=== PATIENT | female | born 1960 | race Caucasian/White ===

== ENCOUNTER 2016-10-24 14:58 | Observation (INO) ==
--- NOTE | 2016-10-24 15:06 | Emergency Department Note ---
Disposition Clinical Impression: Acute exacerbation of chronic obstructive airways disease Disposition: Admitted As Inpatient Condition: Good Referrals: NO,PCP [Non-Partnered Physician] - Forms: ED Satisfaction Letter SOB HPI - General Chief Complaint: ED Shortness of Breath/Dyspnea Stated Complaint: Shortness of breath Time Seen by Provider: 10/24/16 15:05 Source: patient, EMS Mode of arrival: EMS Limitations: no limitations Nursing Notes Reviewed: Yes Vital Signs Reviewed: Yes - History of Present Illness Patient relates that she has had increased shortness of breath for 2 or 3 weeks. With this her "chest is hurtin' with breathing". She relates the cough is productive only a small amount of phlegm. She states she has felt this way in the past with pneumonia. She has had fever or chills. Denies nausea, vomiting, diaphoresis or abdominal pains. She has had occasional abdominal cramp. She reports some body aches. She has occasionally had some swelling without any swelling or pain to her calves or thighs. She states that she has been exposed to her daughter and grandkids who have had upper respiratory symptoms. She has been doing her nebulize treatments and inhalers regularly. She has been continuing on her usual 4 L of home O2. Pt Subjective Complaint: shortness of breath Onset (ago): week(s) (3) Context: recent illness Severity: moderate Consistency/Duration: gradually worsening Improves with: oxygen, rest, bronchodilators Worsens with: exertion, coughing Known history of: COPD Associated symptoms: Reports: chest pain, pain with inspiration, cough, wheezing , sputum production. Denies: fever, orthopnea, lower extremity pain, polyuria, polydipsia, parasthesias, palpitations, hemoptysis, diaphoresis, nausea/vomiting , syncope, abdominal pain, rash Treatment prior to arrival: oxygen, bronchodilator Cough present: Yes Cough Description: Voluntary, Productive, Hacking Cough Frequency: Intermittent Sputum production: Yes Sputum Amount: Scant - Related Data Home oxygen amount: 4 liters Home Medications Medication Instructions Recorded Confirmed Atorvastatin Calcium [Lipitor] 80 mg PO DAILY 06/03/15 09/29/16 Budesonide/Formoterol 160/4.5 2 puff IH BIDR 06/03/15 09/29/16 [Symbicort] Ticagrelor [Brilinta] 90 mg PO BID 06/03/15 09/29/16 Rivaroxaban [Xarelto] 15 mg PO QDPC 10/04/15 09/29/16 Roflumilast [Daliresp] 500 mcg PO DAILY 10/04/15 09/29/16 Albuterol Sulfate [Ventolin Hfa] 18 gm IH BID 09/29/16 09/29/16 Previous Rx's Medication Instructions Recorded PredniSONE 20 mg PO DAILY #18 tablet 12/06/15 Allergies Allergy/AdvReac Type Severity Reaction Status Date / Time codeine Allergy unknown Verified 09/29/16 14:49 All systems ED: reviewed and negative except as stated. Past Medical History - Past Medical History Attestation: Yes The following information was validated with the patient. Source: patient, old records reviewed, nursing notes reviewed Medical history: Reports: COPD, coronary artery disease, hyperlipidemia, hypertension, myocardial infarction Surgical history: Reports: angioplasty/stent Psychiatric history: Reports: anxiety [employer] history: Reports: bilateral tubal ligation - Social History Smoking Status: Current every day smoker Smokeless Tobacco Status: No Alcohol use: Reports: none, rarely Drug use: Reports: none Physical Exam - General Limitations: no limitations General appearance: alert, in distress - Head Head exam: atraumatic, normocephalic, normal inspection - Eye Eye exam: Present: normal appearance, PERRL, EOMI - ENT ENT exam: normal exam, normal oropharynx, mucous membranes moist - Neck Neck exam: Present: normal inspection, full ROM, trachea midline - Chest Chest inspection: Present: normal inspection, symmetric chest wall rise. Absent : tenderness - Respiratory Respiratory exam: Present: respiratory distress, prolonged expiratory phase. Absent: wheezes - Cardiovascular Cardiovascular exam: Present: regular rate, normal rhythm, tachycardia, normal heart sounds - Abdominal Exam Abdominal exam: Present: soft, Non-Tender, normal bowel sounds. Absent: tenderness, distention, guarding, rebound, rigidity - Extremities Exam Extremities exam: Present: normal inspection, full ROM, normal capillary refill , pedal edema (1+). Absent: tenderness, calf tenderness - Expanded Lower Extremity Exam Neurovascular/Tendon exam: Present: normal capillary refill. Absent: motor deficit, sensory deficit, tendon deficit Gait: not tested/not observed - Back Exam Back exam: Present: normal inspection, full ROM. Absent: tenderness, CVA tenderness (R), CVA tenderness (L) - Neurological Exam Neurological exam: Present: alert, oriented X3 - Psychiatric Psychiatric exam: Present: normal affect, normal mood - Skin Skin exam: Present: warm, dry, intact, normal color. Absent: cyanosis, diaphoresis, pallor Course Course Narrative: 1600: All lab, EKG and imaging results are discussed with the patient. She states she still has persistent dyspnea and simply cannot breathe when she gets up to walk around the house. She does not feel comfortable in trying to do any outpatient treatment at this time. I have contacted to Dr. Garcia to see if he has agreeable to continued inpatient management on an observation status. Vital Signs Temperature 98.2 F 10/24/16 15:02 Pulse Rate 109 10/24/16 15:02 Respiratory Rate 28 10/24/16 15:02 Blood Pressure 124/69 10/24/16 15:02 O2 Sat by Pulse Oximetry 98 10/24/16 15:02 Temperature 98.2 F 10/24/16 15:02 Pulse Rate 109 10/24/16 15:02 Respiratory Rate 22 10/24/16 15:30 Blood Pressure 124/69 10/24/16 15:02 O2 Sat by Pulse Oximetry 96 10/24/16 15:30 Oxygen Delivery Oxygen Delivery Room Air Shortness of Breath/Dyspnea - Differential Diagnosis Likely: acute exacerbation of chronic obstructive airways disease, congestive heart failure, pneumonia, asthma with exacerbation - Medical Records Medical records reviewed: Yes I reviewed the patient's medical records. - Lab Data Lab results reviewed: Yes I reviewed the patient's lab results. Lab results narrative: The patient's hemoglobin has been in a similar range over the last month. Result diagrams: 10/24/16 15:33 10/24/16 15:33 Lab Results 10/24/16 10/24/16 10/24/16 Range/Units 15:33 15:33 15:33 WBC 8.1 (4.3-11.1) K/mcL RBC 3.35 L (3.82-4.97) M/mcL Hgb 8.5 L (11.5-15.4) g/dL Hct 29.3 L (35.3-44.9) % MCV 87.5 (83.0-100.0) fL MCH 25.4 L (28.0-33.3) pg MCHC 29.0 L (31.6-35.5) g/dL RDW 17.3 H (11.5-14.5) % Plt Count 233 (140-400) K/mcL MPV 11.7 (9.4-12.4) fL Immature Gran % 0.2 (0-4) % Seg Neutrophils % 83.8 % Lymphocytes % 9.1 % Monocytes % 6.6 % Eosinophils % 0.2 % Basophils % 0.1 % Neutrophils # 6.8 (1.6-8.9) K/mcL Lymphocytes # 0.7 (0.6-4.6) K/mcL Monocytes # 0.5 (0.0-1.3) K/mcL Eosinophils # 0.0 (0.0-0.6) K/mcL Basophils # 0.0 (0.0-0.2) K/mcL VBG Lactic Acid (0.5-2.2) mmol/L Sodium 141 (136-145) mEq/L Potassium 4.3 (3.5-4.5) mEq/L Chloride 96 L (98-109) mEq/L Carbon Dioxide 32 H (19-29) mEq/L BUN 7 (7-20) mg/dL Creatinine 0.54 L (0.57-1.11) mg/dL Est GFR ( Amer) > 60 (> 60) Est GFR (Non-Af Amer) > 60 (> 60) BUN/Creatinine Ratio 13 (6-26) Glucose 92 (70-99) mg/dL Calculated Osmolality 290 (280-300) Calcium 9.1 (8.6-10.8) mg/dL Troponin I 0.00 (0-0.03) ng/mL 10/24/16 Range/Units 15:33 WBC (4.3-11.1) K/mcL RBC (3.82-4.97) M/mcL Hgb (11.5-15.4) g/dL Hct (35.3-44.9) % MCV (83.0-100.0) fL MCH (28.0-33.3) pg MCHC (31.6-35.5) g/dL RDW (11.5-14.5) % Plt Count (140-400) K/mcL MPV (9.4-12.4) fL Immature Gran % (0-4) % Seg Neutrophils % % Lymphocytes % % Monocytes % % Eosinophils % % Basophils % % Neutrophils # (1.6-8.9) K/mcL Lymphocytes # (0.6-4.6) K/mcL Monocytes # (0.0-1.3) K/mcL Eosinophils # (0.0-0.6) K/mcL Basophils # (0.0-0.2) K/mcL VBG Lactic Acid 0.9 (0.5-2.2) mmol/L Sodium (136-145) mEq/L Potassium (3.5-4.5) mEq/L Chloride (98-109) mEq/L Carbon Dioxide (19-29) mEq/L BUN (7-20) mg/dL Creatinine (0.57-1.11) mg/dL Est GFR ( Amer) (> 60) Est GFR (Non-Af Amer) (> 60) BUN/Creatinine Ratio (6-26) Glucose (70-99) mg/dL Calculated Osmolality (280-300) Calcium (8.6-10.8) mg/dL Troponin I (0-0.03) ng/mL - Radiology Data Radiology results reviewed: Yes I reviewed the patient's radiology results. Single view chest x-ray is performed. This does not demonstrate evidence for infiltrate, effusion, pneumothorax, foreign body or heart failure. The cardiac silhouette is normal. The lungs are hyperexpanded consistent with COPD. I do not see abnormality to the osseous structures of the chest. This is on my interpretation. Impressions Chest X-Ray 10/24/16 15:13 IMPRESSION: COPD, without acute cardiopulmonary process identified. D/ / Yasir Porter MD / Yasir Porter MD Interpreting Provider: Yasir Porter MD - EKG Data EKG attestation: Yes I reviewed and interpreted this EKG. EKG shows normal: Reports: sinus rhythm, axis, intervals, QRS complexes, ST-T waves Rate: Reports: normal (97) Interpretation: Reports: no acute changes
[2016-10-24] MEDS ORDERED: Ipratropium/Albuterol Neb 3 ML IH ONE (15:12)
[2016-10-24] MEDS ORDERED: Levofloxacin 500 MG/100 ML 500 MG/100 ML BAG IVPB ONE (15:12)
[2016-10-24] MEDS ORDERED: 0.9 % Sodium Chloride 1,000 ML IVC SCH ×2 (15:15→17:08)
[2016-10-24 15:41] LABS: Basophils % 0.1 %; Eosinophils % 0.2 %; Hematocrit 29.3 % (35.3-44.9); Hemoglobin 8.5 g/dL (11.5-15.4); Immature Granulocytes % 0.2 % (0-4); Lymphocytes # 0.7 K/mcL (0.6-4.6); Lymphocytes % 9.1 %; Mean Corpuscular Hemoglobin 25.4 pg (28.0-33.3); Mean Corpuscular Volume 87.5 fL (83.0-100.0); Mean Platelet Volume 11.7 fL (9.4-12.4); Monocytes # 0.5 K/mcL (0.0-1.3); Monocytes % 6.6 %; Neutrophils # 6.8 K/mcL (1.6-8.9); Platelet Count 233 K/mcL (140-400); Red Blood Count 3.35 M/mcL (3.82-4.97); Red Cell Distribution Width 17.3 % (11.5-14.5); Segmented Neutrophils % 83.8 %
[2016-10-24 15:56] LABS: BUN/Creatinine Ratio 13 (6-26); Blood Urea Nitrogen 7 mg/dL (7-20); Calcium 9.1 mg/dL (8.6-10.8); Carbon Dioxide 32 mEq/L (19-29); Chloride 96 mEq/L (98-109); Glucose 92 mg/dL (70-99); Osmolality,Calculated 290 (280-300); Potassium 4.3 mEq/L (3.5-4.5); Sodium 141 mEq/L (136-145); eGFR For African Americans > 60 (> 60); eGFR For Non-African Americans > 60 (> 60)
[2016-10-24] MEDS ORDERED: Ondansetron 4 MG/2 ML VIAL IVP PRN (17:08)
[2016-10-24] MEDS ORDERED: Ibuprofen 400 MG TABLET PO PRN (17:08)
[2016-10-24] MEDS ORDERED: Acetaminophen 325 MG TABLET PO PRN (17:08)
[2016-10-24] MEDS ORDERED: Naloxone 0.4 MG/ML INJ IVP PRN (17:08)
[2016-10-24] MEDS ORDERED: Albuterol 2.5 MG/3 ML NEBULIZER IH PRN (17:08)
[2016-10-24] MEDS ORDERED: MOM Conc 10 ML UD.LIQ PO PRN (17:08)
--- NOTE | 2016-10-24 18:20 | Internal Med History&Physical ---
Date of Encounter: 10/24/16 Time of Encounter: 17:55 Assessment and Plan (1) Acute exacerbation of chronic obstructive airways disease Current visit: Yes Status: Acute She has been ordered Levaquin and prednisone through emergency room. Continue pulmonary regiment including Symbicort (2) Anemia Current visit: No Status: Acute We will check anemia testing in a.m. She will likely need iron dextran infusion. Qualifiers: Anemia type: unspecified type Qualified Code(s): D64.9 - Anemia, unspecified (3) Lung nodule Current visit: No Status: Acute Recommend repeat CT scan in August 2017 to follow up right lower lobe nodule Internal Medicine - H&P: HPI Chief complaint: Dyspnea Admitted From: Home Plans for Post Hospital Care: Home History of present illness: Ms. Lopez is a 56 year old female who came to emergency him stating she had progressive dyspnea onset approximately 2 weeks previously. She stated she had chest pain with taking a deep breath. She had a minimally productive cough. She was evaluated in emergency room and felt to have exacerbation of COPD. She was admitted to [facility] floor for ongoing care needs. She was hospitalized at [facility] approximately 2 months ago with similar complaints. She as smoked since age 14 up to 3 packs per day. She thinks she had PFTs approximately July 2015 at [facility] and was told she had COPD. She has worn oxygen at home 27/03 since 2013. She has not been tested for sleep apnea. She states she last saw her product tester June 2016. Past Med Surg Social Fam HX - Past Medical History Medical history: COPD, coronary artery disease, hyperlipidemia, hypertension, myocardial infarction Psychiatric history: anxiety - Past Surgical History Surgical History: angioplasty/stent - Social History Smoking Status: Current every day smoker Smokeless Tobacco Status: No Alcohol use: none, rarely Drug use: none Internal Medicine - H&P: Meds Atorvastatin Calcium [Lipitor] 80 mg PO DAILY 06/03/15 [History] Budesonide/Formoterol 160/4.5 [Symbicort] 2 puff IH BIDR 06/03/15 [History] Ticagrelor [Brilinta] 90 mg PO BID 06/03/15 [History] Rivaroxaban [Xarelto] 15 mg PO QDPC 10/04/15 [History] Roflumilast [Daliresp] 500 mcg PO DAILY 10/04/15 [History] PredniSONE 20 mg PO DAILY #18 tablet 12/06/15 [Rx] Albuterol Sulfate [Ventolin Hfa] 18 gm IH BID 09/29/16 [History] Allergies codeine Allergy (Verified 09/29/16 14:49) unknown All Systems PM: A 10-system review of systems was performed and is negative for pertinent findings except as documented above in the HPI. Review of systems: Review of systems from her August 2016 [facility] hospitalization were reviewed and revised as below. Gen.: Her weight has decreased from 48.8 kg at time of discharge August 2016 to admission weight of 40.823 kg at present Cardiovascular: She claims she has had 5 myocardial infarctions. She had a heart catheterization October 2013 with a stent placed in the RCA. She denies DVT or pulmonary embolus. She had an echocardiogram done August 2014 with LVEF of 45%. There was moderate diastolic dysfunction and no significant valvular abnormalities. Respiratory: As per history of present illness GI: She denies disorders with her liver gallbladder or exocrine pancreas. She states she has had diarrhea occasionally with urination but states the stool is not very loose. : No history of hematuria dysuria or kidney stones Neurologic: No history of large distribution strokes or seizures. Endocrine: She has hyperlipidemia. She denies thyroid disease or diabetes. Hematology/oncology: She denies blood disorders cancers or anemia. She has a pulmonary nodule that was in the right lower lung on a September 2015 CT scan. A follow-up CT done in August 2016 showed no significant change with a recommendation for follow up CT in 12 months. Anemia testing done during her last hospitalization showed findings consistent with iron deficiency anemia. She was prescribed oral ferrous sulfate and vitamin C but states she has not taken them because of intolerance. Psychiatric: She has depression but no significant anxiety or other mental health issues Musk skeletal: She has arthritis but no known gout or osteoporosis - Constitutional Vitals: Temp Pulse Resp BP Pulse Ox 98.2 F 103 18 106/68 94 L 10/24/16 15:02 10/24/16 16:36 10/24/16 17:05 10/24/16 17:05 10/24/16 16:36 Exam: Gen.: She is a cachectic female lying in bed who appears in mild respiratory distress HEENT: Head is atraumatic and normocephalic. Eyes: EOMI. There is no scleral icterus. Mouth: Mucosa is moist. Neck: Supple and nontender. There is no thyromegaly or adenopathy noted. Heart: Regular without murmurs gallops or ectopics. Lungs: No wheezes or crackles are heard. Abdomen: Soft and nontender. No masses or guarding are noted. Extremities: There is no cyanosis or clubbing noted. There is trace to 1+ pitting edema in the left perimalleolar area. Dorsalis pedis and posttibial pulses are trace palpable bilaterally. Her feet are warm to touch. Neurologic: Mental status: She is talkative and a good historian. Cranial nerves: Smile is symmetric. Forehead wrinkles bilaterally. Tongue protrudes midline. EOMI. Motor: There is no pronator drift. Cerebellar: Finger to nose is intact bilaterally. Skin: Warm and dry Internal Med - H&P Results - Labs CBC & Chem 7: 10/24/16 15:33 10/24/16 15:33
[2016-10-24] MEDS: PredniSONE 20 MG TABLET PO SCH (21:09)
[2016-10-24] MEDS: 0.9 % Sodium Chloride 1,000 ML IVC SCH (21:11)
[2016-10-24] MEDS: Ipratropium/Albuterol Neb 3 ML IH SCH (22:23)
[2016-10-24] MEDS: Budesonide/Formoterol 160/4.5 MDI IH SCH (22:26)
[2016-10-25] MEDS: Ipratropium/Albuterol Neb 3 ML IH SCH ×4 (04:59→22:30)
[2016-10-25] MEDS: 0.9 % Sodium Chloride 1,000 ML IVC SCH (05:17)
[2016-10-25 06:08] LABS: Hematocrit 24.2 % (35.3-44.9); Hemoglobin 7.1 g/dL (11.5-15.4); Immature Granulocytes % 0.3 % (0-4); Lymphocytes # 0.3 K/mcL (0.6-4.6); Lymphocytes % 7.9 %; Mean Corpuscular HGB Conc 29.3 g/dL (31.6-35.5); Mean Corpuscular Hemoglobin 25.2 pg (28.0-33.3); Mean Corpuscular Volume 85.8 fL (83.0-100.0); Mean Platelet Volume 11.6 fL (9.4-12.4); Monocytes # 0.1 K/mcL (0.0-1.3); Monocytes % 2.6 %; Neutrophils # 3.5 K/mcL (1.6-8.9); Platelet Count 189 K/mcL (140-400); Red Blood Count 2.82 M/mcL (3.82-4.97); Red Cell Distribution Width 17.2 % (11.5-14.5); Segmented Neutrophils % 89.2 %
[2016-10-25] MEDS: PredniSONE 20 MG TABLET PO SCH ×2 (08:23→17:20)
[2016-10-25] MEDS ORDERED: Levofloxacin 500 MG/100 ML 500 MG/100 ML BAG IVPB SCH (09:00)
[2016-10-25 10:35] LABS: % Iron Saturation 2 % (15-50); Iron 8 mcg/dL (50-170); Transferrin 271 mg/dL (180-382)
[2016-10-25] MEDS: Budesonide/Formoterol 160/4.5 MDI IH SCH ×2 (10:46→22:30)
[2016-10-25 10:56] LABS: Ferritin 8 ng/ml (5-204)
[2016-10-25 11:09] LABS: Folate 10.9 ng/mL (7.0-31.4)
--- NOTE | 2016-10-25 11:27 | Internal Med Progress Note ---
Date of Encounter: 10/25/16 Time of Encounter: 11:15 - Assessment and plan (1) Acute exacerbation of chronic obstructive airways disease Current Visit: Yes Status: Acute Assessment and plan: October 25. Continue Levaquin. I will decrease prednisone to 10 mg twice a day (2) Anemia Current Visit: No Status: Acute Assessment and plan: October 25. Hemoglobin has decreased to 7.1. Anemia testing shows iron deficiency. I will give her iron dextran infusion. Recheck labs in a.m. Will do abdominal/pelvic CT to evaluate anemia and weight loss Qualifiers: Anemia type: unspecified type Qualified Code(s): D64.9 - Anemia, unspecified (3) Lung nodule Current Visit: No Status: Acute Assessment and plan: October 25. Recheck chest CT August 2017. - Subjective Interval history: October 25. She has no new complaints. She states her breathing has improved. - Constitutional Vitals: Temp Pulse Resp BP Pulse Ox 98.3 F 72 18 106/43 99 10/25/16 06:37 10/25/16 06:37 10/25/16 06:37 10/25/16 06:37 10/25/16 06:37 Exam: She is resting comfortably in bed and appears in no acute distress. Her affect is bright and cheerful. I reviewed her medications and lab results. Internal Medicine: Result - Labs CBC & Chem 7: 10/25/16 05:45 10/24/16 15:33 Labs: Short CBC 10/25/16 Range/Units 05:45 WBC 3.9 L D (4.3-11.1) K/mcL Hgb 7.1 L (11.5-15.4) g/dL Hct 24.2 L (35.3-44.9) % Plt Count 189 (140-400) K/mcL Neutrophils # 3.5 (1.6-8.9) K/mcL Consult Discharge Plan - Plan Referrals: Marcos Green MD [Primary Care Provider] - 1 week
[2016-10-25] MEDS ORDERED: IRON DEXTRAN COMPLEX IVPB ONE (14:00)
[2016-10-25] MEDS ORDERED: SODIUM CHLORIDE 0.9% IVPB ONE (14:00)
--- NOTE | 2016-10-25 17:56 | Electrocardiograph Report ---
[address] [address] Test Date: 2016-10-24 Pat Name: Lashanda Lopez Department: [id number] Room: [facility] Gender: F Interline Clerk: : 1960 Requested By: Lewis Lozano Order Number: [id number] Reading MD: Skyla See Measurements Intervals [place] Rate: 97 P: 74 CA: 120 QRS: 82 QRSD: 81 T: 53 QT: 318 QTc: 373 Interpretive Statements SINUS RHYTHM Electronically Signed On 10-25-2016 17:54:19 EST by Skyla See
[2016-10-26] MEDS: Ipratropium/Albuterol Neb 3 ML IH SCH ×4 (05:04→21:58)
[2016-10-26 06:28] LABS: Basophils % 0.1 %; Hematocrit 25.7 % (35.3-44.9); Hemoglobin 7.6 g/dL (11.5-15.4); Immature Granulocytes % 0.4 % (0-4); Lymphocytes # 1.1 K/mcL (0.6-4.6); Lymphocytes % 14.8 %; Mean Corpuscular HGB Conc 29.6 g/dL (31.6-35.5); Mean Corpuscular Hemoglobin 25.9 pg (28.0-33.3); Mean Corpuscular Volume 87.7 fL (83.0-100.0); Mean Platelet Volume 11.9 fL (9.4-12.4); Monocytes # 0.5 K/mcL (0.0-1.3); Monocytes % 6.6 %; Platelet Count 216 K/mcL (140-400); Red Blood Count 2.93 M/mcL (3.82-4.97); Red Cell Distribution Width 17.6 % (11.5-14.5); Segmented Neutrophils % 78.1 %
[2016-10-26 06:57] LABS: Neutrophils # 5.6 K/mcL (1.6-8.9)
[2016-10-26] MEDS: PredniSONE 20 MG TABLET PO SCH ×2 (08:12→17:23)
[2016-10-26] MEDS: Levofloxacin 500 MG/100 ML 500 MG/100 ML BAG IVPB SCH (08:13)
[2016-10-26] MEDS: Budesonide/Formoterol 160/4.5 MDI IH SCH ×2 (11:04→21:58)
[2016-10-26] MEDS ORDERED: Levofloxacin 500 MG/100 ML 500 MG/100 ML BAG IVPB SCH (15:00)
--- NOTE | 2016-10-26 15:08 | Internal Med Progress Note ---
Date of Encounter: 10/26/16 Time of Encounter: 14:50 - Assessment and plan (1) Acute exacerbation of chronic obstructive airways disease Current Visit: Yes Status: Acute Assessment and plan: October 25. Continue Levaquin. I will decrease prednisone to 10 mg twice a day (2) Anemia Current Visit: No Status: Acute Assessment and plan: October 25. Hemoglobin has decreased to 7.1. Anemia testing shows iron deficiency. I will give her iron dextran infusion. Recheck labs in a.m. Will do abdominal/pelvic CT to evaluate anemia and weight loss October 26. CT scan showed no significant pathology. She tolerated the iron dextran well. Hemoglobin has risen to 7.6. Continue present management Qualifiers: Anemia type: unspecified type Qualified Code(s): D64.9 - Anemia, unspecified (3) Lung nodule Current Visit: No Status: Acute Assessment and plan: October 25. Recheck chest CT August 2017. - Subjective Interval history: October 25. She has no new complaints. She states her breathing has improved. October 26. She has no new complaints and feels her breathing is improved. She is uncertain if she should live with her daughter when discharged or go to SNF - Constitutional Vitals: Temp Pulse Resp BP Pulse Ox 98.7 F 97 18 116/65 95 10/26/16 12:08 10/26/16 14:28 10/26/16 12:08 10/26/16 12:08 10/26/16 14:28 Exam: She is sitting on the side of the bed and talkative. She does not appear significantly dyspneic. I reviewed her medications and lab results. Internal Medicine: Result - Labs CBC & Chem 7: 10/26/16 05:17 10/24/16 15:33 Labs: Short CBC 10/26/16 Range/Units 05:17 WBC 7.1 D (4.3-11.1) K/mcL Hgb 7.6 L (11.5-15.4) g/dL Hct 25.7 L (35.3-44.9) % Plt Count 216 (140-400) K/mcL Neutrophils # 5.6 (1.6-8.9) K/mcL - Impressions Impressions Abdomen/Pelvis CT 10/25/16 11:30 IMPRESSION: 1. Possible mildly enlarged retroperitoneal lymph nodes. This be best assessed with contrast enhanced CT 2. Sigmoid diverticulosis D/ / Darwin Hatfield MD / Darwin Hatfield MD Interpreting Provider: Darwni Hatfield MD Consult Discharge Plan - Plan Referrals: Marcos Green MD [Primary Care Provider] - 1 week
[2016-10-26] MEDS ORDERED: *HR* Rivaroxaban 15 MG TABLET PO SCH (22:00)
[2016-10-26] MEDS: *HR* Ticagrelor 90 MG TABLET PO SCH (22:31)
[2016-10-27] MEDS: Ipratropium/Albuterol Neb 3 ML IH SCH ×2 (04:20→10:09)
[2016-10-27] MEDS: PredniSONE 20 MG TABLET PO SCH (08:47)
[2016-10-27] MEDS: Levofloxacin 500 MG/100 ML 500 MG/100 ML BAG IVPB SCH (08:47)
[2016-10-27] MEDS: *HR* Ticagrelor 90 MG TABLET PO SCH (08:47)
[2016-10-27] MEDS: Budesonide/Formoterol 160/4.5 MDI IH SCH (10:10)
[2016-10-27 11:49] VITALS: BP 98/57
--- NOTE | 2016-10-27 12:03 | Discharge Summary ---
Date of Encounter: 10/27/16 Time of Encounter: 11:50 - Discharge Diagnosis (1) Acute exacerbation of chronic obstructive airways disease Priority: Primary Status: Acute (2) Anemia Priority: Secondary Status: Acute Qualifiers: Anemia type: unspecified type Qualified Code(s): D64.9 - Anemia, unspecified (3) Lung nodule Priority: Secondary Status: Acute - Discharge Medications Prescriptions: Lactobacillus [Culturelle] 1 each PO BID #4 cap.sprink Levofloxacin [Levaquin] 500 mg PO DAILY #2 tablet PredniSONE 10 mg PO BIDWM #9 tablet Home Medications: Atorvastatin Calcium [Lipitor] 80 mg PO DAILY 06/03/15 [History] Budesonide/Formoterol 160/4.5 [Symbicort] 2 puff IH BIDR 06/03/15 [History] Ticagrelor [Brilinta] 90 mg PO BID 06/03/15 [History] Rivaroxaban [Xarelto] 15 mg PO DAILY 10/04/15 [History] Roflumilast [Daliresp] 500 mcg PO DAILY 10/04/15 [History] Albuterol Sulfate [Ventolin Hfa] 18 gm IH BID 09/29/16 [History] Lactobacillus [Culturelle] 1 each PO BID #4 cap.sprink 10/27/16 [Rx] Levofloxacin [Levaquin] 500 mg PO DAILY #2 tablet 10/27/16 [Rx] PredniSONE 10 mg PO BIDWM #9 tablet 10/27/16 [Rx] Allergies/Adverse Reactions: Allergies codeine Allergy (Verified 09/29/16 14:49) unknown Procedures/tests Complete & Pending: Procedures Performed prior 72 hours Category Date Time Status CT abd pelvis wo no iv no oral [CT] Routine Cat Scan 10/25/16 11:30 Completed Date of admission: 10/24/16 16:57 Primary care physician: Marcos Green MD Consults: 10/24/16 21:32 Consult to Platen Drier Operator [CONS] Routine Reason for SW Consult: Pt requests SS consult 10/25/16 15:57 Consult to Occupational Therapy [CONS] Routine Comment: Evaluate, develop and implement POC Consult to Physical Therapy [CONS] Routine Comment: Evaluate, develop and implement POC - Patient Status Disposition: Home, Self-Care Condition: Good Overall status at discharge: patient is progressing back to baseline - Discharge Instructions Follow Up With: Marcos Green MD [Primary Care Provider] - 1 week - Diet and Activity Activity: resume usual activities as tolerated, wear oxygen at all times Diet: advance to your usual diet Hospital course: Ms. Lopez is a 56 year old female who came to emergency him stating she had progressive dyspnea onset approximately 2 weeks previously. She stated she had chest pain with taking a deep breath. She had a minimally productive cough. She was evaluated in emergency room and felt to have exacerbation of COPD. She was admitted to [facility] for ongoing care needs. Initial orders were written by the emergency room physician. I saw her on October 24 and performed the history and physical. She was started on Levaquin and her home pulmonary medication regimen. She had gradual improvement during her hospital stay. When I saw her on October 27 she felt stable for discharge home. She will continue with Levaquin and probiotic for 2 additional days after discharge. She will continue to use oxygen 24/7. Anemia testing showed iron 8, transferrin saturation 2% and ferritin 8. She was given iron dextran infusion. Dr. Marcos Green can monitor her CBC and other labs as needed. I reviewed her records showing repeat chest CT scan recommended in August 2017 to follow up on the right upper lobe nodule. Dr. Marcos Green can order this. Social service consult was made but the patient declined offer to go to SNF for continuing treatment. She chose to return to home. She will be discharged home today to follow with Dr. Green within 1 week. I encouraged her to become a nonsmoker. - Time Spent with Patient Total time spent providing and/or coordinating discharge services: - Constitutional Vitals: Temp Pulse Resp BP Pulse Ox 98.7 F 100 16 98/57 92 L 10/27/16 11:48 10/27/16 11:48 10/27/16 11:48 10/27/16 11:48 10/27/16 11:48 - VTE Documentation of Mechanical Device: Graduated compression elastic hosiery
--- NOTE | 2016-10-28 14:00 | Physician Discharge Referral ---
ExtendedCare Referral Info Transfer To: [facility] Provider in Charge: Jose Provider in Charge after Transfer: PCP - Diagnosis (1) Acute exacerbation of chronic obstructive airways disease Priority: Primary Status: Acute (2) Anemia Priority: Secondary Status: Acute (3) Lung nodule Priority: Secondary Status: Acute Prognosis: Fair Aware of Diagnosis: Patient Aware of Prognosis: Patient - Transfer Medications Prescriptions: Lactobacillus [Culturelle] 1 each PO BID #4 cap.sprink Levofloxacin [Levaquin] 500 mg PO DAILY #2 tablet PredniSONE 10 mg PO BIDWM #9 tablet Home Medications: Atorvastatin Calcium [Lipitor] 80 mg PO DAILY 06/03/15 [History] Budesonide/Formoterol 160/4.5 [Symbicort] 2 puff IH BIDR 06/03/15 [History] Ticagrelor [Brilinta] 90 mg PO BID 06/03/15 [History] Rivaroxaban [Xarelto] 15 mg PO DAILY 10/04/15 [History] Roflumilast [Daliresp] 500 mcg PO DAILY 10/04/15 [History] Albuterol Sulfate [Ventolin Hfa] 18 gm IH BID 09/29/16 [History] Lactobacillus [Culturelle] 1 each PO BID #4 cap.sprink 10/27/16 [Rx] Levofloxacin [Levaquin] 500 mg PO DAILY #2 tablet 10/27/16 [Rx] PredniSONE 10 mg PO BIDWM #9 tablet 10/27/16 [Rx] Allergies/Adverse Reactions: Allergies codeine Allergy (Verified 09/29/16 14:49) unknown - Respiratory Orders Oxygen / L per min (Oxygen by nasal cannula at 2-4 L/m as needed to keep sats greater than or equal to 90%) Smoking Cessation: Smoking cessation has been advised. For more information, call the [place] Tobacco Quit Line at 3-368-JWSQ-NOW. - Mobility Orders Ambulate - Rehabiliation Orders Rehab Potential: Fair Rehab Orders: Evaluation for Physical Therapy, Evaluation for Occupational Therapy - Diet Orders Regular CERTIFICATION: I certify that the transfer of the above named patient to an Extended Care Facility is necessary for the continuing treatment of the diagnosis listed. The above information is true and accurate reflection of patient's current condition. Confidential - Redisclosure prohibited without a patient's written consent.
== END 2016-10-27 13:39 | disposition home or self-care (01) ==
LOC: INPPIK 14:58 → EMEROOPIK 14:58 → INPPIK 17:12
PROVIDERS: ADMIT Internal Medicine; ATTEND Internal Medicine